=== PATIENT | female | born 1980 | race African-American/Black ===

== ENCOUNTER 2019-11-17 06:30 | Inpatient (IN) | payer SELFPAY ==
[~2019-11-17] VITALS: Ht 172.7 cm; Wt 100.7 kg
[2019-11-17 06:45] VITALS: BP 134/98
[2019-11-17 07:12] LABS: BASOPHILS % (AUTO) 0.5 % (0.0-2.0); EOSINOPHILS # (AUTO) 0.2 K/uL (0-0.4); HEMATOCRIT 36.5 % (36-48); HEMOGLOBIN 11.8 g/dL (12.0-16.0); LYMPHOCYTES # (AUTO) 2.8 K/uL (2.5-16.5); LYMPHOCYTES % (AUTO) 54.8 % (20.5-51.1); MEAN CORPUSCULAR HEMOGLOBIN 26 pg (27-31); MEAN CORPUSCULAR HGB CONC 32 g/dL (33-37); MEAN CORPUSCULAR VOLUME 81.3 fL (80-94); MONOCYTES # (AUTO) 0.4 K/uL (0.8-1.0); MONOCYTES % (AUTO) 8.2 % (1.7-9.3); NEUTROPHILS # (AUTO) 1.6 K/uL (1.8-7.7); NEUTROPHILS % (AUTO) 32.5 % (42.2-75.2); PLATELET COUNT (AUTO) 200 K/uL (140-450); RED BLOOD CELL COUNT(AUTO) 4.49 MIL/uL (4.20-5.40); RED CELL DISTRIBUTION WIDTH 13.9 % (11.6-13.7)
[2019-11-17 07:15] LABS: APPEARANCE,URINE CLEAR (CLEAR); BILIRUBIN,URINE NEGATIVE (NEGATIVE); BLOOD, URINE 1+ (NEGATIVE); COLOR,URINE YELLOW (YELLOW); LEUKOCYTE ESTERASE ,URINE NEGATIVE (NEGATIVE); NITRITE, URINE NEGATIVE (NEGATIVE); PH,URINE 6.5 (5.0-9.0); UGLUCOSE NEGATIVE (NEGATIVE)
[2019-11-17] MEDS ORDERED: VANCOMYCIN 1,000 MG in DEXTROSE 5% 250 ML IV ONE (07:30)
[2019-11-17] MEDS ORDERED: NACL 0.9% 1,000 ML IV ONE (07:30)
[2019-11-17 07:31] LABS: RBC,URINE 0-5 /HPF (0-5); WBC,URINE 0-5 /HPF (0-5)
[2019-11-17 07:32] LABS: ALBUMIN 3.7 g/dL (3.4-5.0); ANION GAP 12.4 (8-16); CARBON DIOXIDE 27.1 mmol/L (21-32); CREATININE 0.8 mg/dL (0.6-1.3); POTASSIUM 3.5 mmol/L (3.5-5.1); TOTAL BILIRUBIN 0.4 mg/dL (0.0-1.0)
[2019-11-17] MEDS ORDERED: VANCOMYCIN 1,000 MG VIAL ONE (07:40)
[2019-11-17] MEDS ORDERED: NACL 0.9% 1,000 ML IV SCH (08:53)
[2019-11-17] MEDS ORDERED: DOCUSATE SODIUM 100 MG GELCAP PO PRN (08:55)
[2019-11-17] MEDS ORDERED: ZOLPIDEM 5 MG TAB PO PRN (08:55)
[2019-11-17] MEDS ORDERED: ACETAMINOPHEN 325 MG TAB PO PRN (08:55)
[2019-11-17] MEDS ORDERED: ONDANSETRON 4 MG/2 ML VIAL IM/IVP PRN (08:55)
[2019-11-17] MEDS ORDERED: LORazepam 2 MG/ML VIAL IM/IVP PRN (08:55)
[2019-11-17] MEDS ORDERED: MORPHINE SULFATE 2 MG/ML SYR IVP PRN (08:55)
[2019-11-17] MEDS ORDERED: VANCOMYCIN PER PHARMACY MC PRN (08:55)
[2019-11-17 09:08] LABS: PROTHROMBIN TIME 10.2 secs (10.8-13.4)
[2019-11-17 09:23] LABS: BARBITURATE, URINE NEGATIVE ng/ml (NEG <=200); BENZODIAZEPINE, URINE NEGATIVE ng/mL (NEG <=200); CANNABINOID, URINE NEGATIVE ng/mL (NEG <=50); COCAINE, URINE NEGATIVE ng/mL (NEG <=300); OPIATE, URINE NEGATIVE ng/mL (NEG <=2000); PHENCYCLIDINE SCREEN,URINE NEGATIVE ng/mL (NEG <=25)
[2019-11-17 09:36] LABS: MAGNESIUM 1.9 mg/dL (1.8-2.4); PHOSPHORUS 2.9 mg/dL (2.5-4.9); THYROID STIMULATING HORMONE 3.76 uIU/mL (0.34-3.74)
[2019-11-17] MEDS ORDERED: diphenhydrAMINE 50 MG/ML VIAL IVP PRN (10:10)
[2019-11-17] MEDS ORDERED: HYDROmorphone 1 MG/ML AMP IVP PRN (10:10)
[2019-11-17] MEDS ORDERED: ONDANSETRON 4 MG/2 ML VIAL IVP PRN (10:10)
[2019-11-17] MEDS ORDERED: MEPERIDINE 25 MG/ML SYR IVP PRN (10:10)
[2019-11-17] MEDS ORDERED: BUPIVACAINE-MPF 0.25% 30 ML VIAL INJ SCH (11:15)
[2019-11-17] MEDS: NACL 0.9% 1,000 ML IV SCH ×2 (12:13→18:33)
[2019-11-17] MEDS: PIPERACILLIN/TAZOBACTAM 3.375 GM in DEXTROSE 5% 50 ML IV SCH ×2 (13:07→18:32)
[2019-11-17 13:30] VITALS: BP 110/81
[2019-11-17 16:00] VITALS: BP 138/76
[2019-11-17] MEDS: VANCOMYCIN 1,000 MG in DEXTROSE 5% 250 ML IV SCH (16:33)
[2019-11-17] MEDS: HYDROcodone/APAP 5/325 MG 1 TAB TAB PO PRN (21:25)
[2019-11-18 00:15] VITALS: BP 126/81
[2019-11-18] MEDS: PIPERACILLIN/TAZOBACTAM 3.375 GM in DEXTROSE 5% 50 ML IV SCH ×2 (00:22→05:39)
[2019-11-18] MEDS: VANCOMYCIN 1,000 MG in DEXTROSE 5% 250 ML IV SCH (00:56)
[2019-11-18] MEDS: NACL 0.9% 1,000 ML IV SCH ×2 (02:46→07:06)
[2019-11-18] MEDS: HYDROcodone/APAP 5/325 MG 1 TAB TAB PO PRN ×2 (05:44→17:41)
[2019-11-18 07:56] LABS: CHOL/HDL RATIO 4.6 (1-4.5)
[2019-11-18 08:00] VITALS: BP 114/66
[2019-11-18] MEDS: AMPICILLIN/SULBACTAM 3 GM in NACL 0.9% 100 ML IV SCH ×2 (12:30→17:48)
[2019-11-18 16:00] VITALS: BP 120/79
[2019-11-19] VITALS: BP 121/83
[2019-11-19] MEDS: AMPICILLIN/SULBACTAM 3 GM in NACL 0.9% 100 ML IV SCH ×2 (00:55→06:28)
[2019-11-19] MEDS: HYDROcodone/APAP 5/325 MG 1 TAB TAB PO PRN (01:03)
[2019-11-19 07:42] LABS: BASOPHILS % (AUTO) 0.5 % (0.0-2.0); EOSINOPHILS # (AUTO) 0.1 K/uL (0-0.4); EOSINOPHILS % (AUTO) 2.1 % (0.0-4.0); HEMATOCRIT 35.7 % (36-48); HEMOGLOBIN 11.4 g/dL (12.0-16.0); LYMPHOCYTES # (AUTO) 3.8 K/uL (2.5-16.5); LYMPHOCYTES % (AUTO) 58.1 % (20.5-51.1); MEAN CORPUSCULAR HEMOGLOBIN 26 pg (27-31); MEAN CORPUSCULAR HGB CONC 32 g/dL (33-37); MEAN CORPUSCULAR VOLUME 82.1 fL (80-94); MONOCYTES # (AUTO) 0.5 K/uL (0.8-1.0); MONOCYTES % (AUTO) 7.4 % (1.7-9.3); NEUTROPHILS # (AUTO) 2.1 K/uL (1.8-7.7); NEUTROPHILS % (AUTO) 31.9 % (42.2-75.2); PLATELET COUNT (AUTO) 193 K/uL (140-450); RED BLOOD CELL COUNT(AUTO) 4.35 MIL/uL (4.20-5.40); RED CELL DISTRIBUTION WIDTH 13.7 % (11.6-13.7); WHITE BLOOD COUNT (AUTO) 6.5 K/uL (4.8-10.8)
[2019-11-19 07:43] LABS: MAGNESIUM 1.6 mg/dL (1.8-2.4); PHOSPHORUS 3.2 mg/dL (2.5-4.9)
[2019-11-19 07:47] LABS: ANION GAP 10.6 (8-16); CARBON DIOXIDE 29.3 mmol/L (21-32); CREATININE 0.8 mg/dL (0.6-1.3); POTASSIUM 3.9 mmol/L (3.5-5.1)
[2019-11-19 08:00] VITALS: BP 138/89
[2019-11-19] MEDS ORDERED: ASCO1CAP75 PO (08:55)
[2019-11-19] MEDS ORDERED: AMOX-999 PO (08:55)
[2019-11-19] MEDS ORDERED: MAGNESIUM OXIDE 400 MG TAB PO SCH (10:15)
[2019-11-19] MEDS ORDERED: CEPH500C16 PO (11:09)
[2019-11-19] MEDS ORDERED: HYDR-5122 PO (11:10)
== END 2019-11-19 11:35 | disposition home or self-care (01) | DRG 585 ==
LOC: MED 06:30 → MTU 08:53
PROVIDERS: ADMIT General Practice; ATTEND General Practice
PROC: 0HBT0ZZ Excision of Right Breast, Open Approach (ICD-10-PCS; principal; 2019-11-17 09:30)
DX: N61.1 Abscess of the breast and nipple (principal); E66.01 Morbid (severe) obesity due to excess calories; Z68.33 Body mass index [BMI] 33.0-33.9, adult; E83.42 Hypomagnesemia; E78.00 Pure hypercholesterolemia, unspecified; E02 Subclinical iodine-deficiency hypothyroidism; N63.10 Unspecified lump in the right breast, unspecified quadrant
CPT/HCPCS: 36415; 71045; 76641; 80048; 80053; 80202; 80305; 81001; 83036; 83605; 83690; 83735; 84100; 84134; 84443; 85025; 85610; 85730; 87040; 87070; 87075; 87081; 87086; 87205; 88307; 99285; J0295; J2543; J3370; J7030; J7060; Q0092